=== PATIENT | male | born 1965 | race Caucasian/White ===

== ENCOUNTER 2023-07-04 18:06 | Inpatient (IN) | payer MEDICAID ==
[~2023-07-04] VITALS: Ht 172.7 cm; Wt 104.0 kg
[2023-07-04] MEDS: ONDANSETRON HCL 4 MG/2 ML VIAL IV ONE (19:00)
[2023-07-04] MEDS: InsuLIN REG 1unit/0.01ml Soln (100units/ml) SC ONE (19:15)
[2023-07-04 20:02] LABS: Alanine Aminotransferase 155 U/L (7-40); Albumin 3.7 g/dL (3.2-4.8); Alkaline Phosphatase 183 U/L (46-116); Anion Gap 29.00001 (5-15); Aspartate Aminotransferase 238 U/L (13-40); BUN/Creatinine Ratio 14.6 (10.0-20.0); Blood Urea Nitrogen 43 mg/dL (9-23); Chloride 90 mmol/L (98-107); Glucose 308 mg/dL (74-106); Magnesium 2.3 mg/dL (1.6-2.6); Potassium 3.4 mmol/L (3.5-5.1); Sodium 129 mmol/L (136-145)
[2023-07-04 20:03] LABS: Bilirubin, Total 1.8 mg/dL (0.2-1.0)
[2023-07-04 20:12] LABS: Salicylate < 3.0 mg/dL (2.8-20.0)
[2023-07-04 20:23] LABS: Basophils # (auto) 0.1 10 ^3/uL (0-0.2); Eosinophils # (auto) 0 10 ^3/uL (0-0.8); Hemoglobin 11.7 g/dL (13.5-17.5); Lymphocytes # (auto) 0.3 10 ^3/uL (0.4-5.4); Lymphocytes % (auto) 3.3 % (10.0-50.0); Nucleated Red Blood Cells % 0.2 %
[2023-07-04 20:27] LABS: Basophils % (auto) 1.3 % (0.0-2.0); Hematocrit 35.9 % (41.0-53.0); Mean Corpuscular Hemoglobin 35.2 pg (28.0-32.0); Mean Corpuscular Hgb Conc. 32.7 g/dL (32.0-36.0); Mean Corpuscular Volume 107.6 fL (80.0-100.0); Monocytes # (auto) 0.9 10 ^3/uL (0-1.3); Monocytes % (auto) 9.3 % (0.0-12.0); Neutrophils % (auto) 86.1 % (37.0-80.0); Red Blood Cells 3.34 10^6/uL (4.5-5.90); Red Cell Distribution Width 15.8 % (11.8-14.3); White Blood Cell 9.3 10^3/uL (4.4-10.8)
[2023-07-04 20:35] LABS: Carbon Dioxide < 10 mmol/L (20-30)
[2023-07-04 20:37] LABS: Blood Alcohol 3.7 mg/dL (<10)
[2023-07-04] MEDS ORDERED: DEXTROSE (50%) 50ML SYRG IV PRN ×2 (21:15→22:00)
[2023-07-04 21:54] LABS: Anisocytosis Slight; Macrocytosis Moderate; Platelet Estimate Decreased
[2023-07-04] MEDS: INSULIN DRIP 100 UNIT/100ML 100 ML IV SCH ×2 (22:00→23:53)
[2023-07-04] MEDS ORDERED: NITROGLYCERIN 0.4 MG SL TAB SL PRN (22:00)
[2023-07-04] MEDS ORDERED: MORPHINE SULFATE INJ 2 MG/ml SYRG IV PRN (22:00)
[2023-07-04] MEDS ORDERED: DOCUSATE SOD 100 MG CAP PO PRN (22:00)
[2023-07-04] MEDS: ACCU-CHEK COMFORT CURVE STRIP VI SCH (22:30)
[2023-07-04 23:12] LABS: Chloride 89 mmol/L (98-107); Potassium 3.6 mmol/L (3.5-5.1); Sodium 130 mmol/L (136-145)
[2023-07-04 23:13] LABS: Anion Gap 31.00001 (5-15)
[2023-07-04 23:14] LABS: Calcium 7.8 mg/dL (8.7-10.4)
[2023-07-04 23:18] LABS: BUN/Creatinine Ratio 18.4 (10.0-20.0); Glucose 304 mg/dL (74-106)
[2023-07-04 23:28] LABS: Blood Urea Nitrogen 59 mg/dL (9-23)
[2023-07-04 23:29] LABS: Carbon Dioxide < 10 mmol/L (20-30)
[2023-07-04] MEDS: SODIUM BICARB 8.4% 50Meq/50ml SYR Vial IV ONE (23:39)
[2023-07-05] VITALS: PULSE 85; RESP 18; O2SAT 96
[2023-07-05] MEDS: SODIUM CHLORIDE 0.9% 1,000 ML IV ONE (00:01)
[2023-07-05] MEDS: SODIUM CHLORIDE 0.9% 1,000 ML IVB ONE (00:01)
[2023-07-05] MEDS: D5W/SOD CHL 0.45%/KCL 20MEQ 1,000 ML IV SCH (00:25)
[2023-07-05] MEDS: PHENYLEPHRINE IV 250 ML IV SCH (01:45)
[2023-07-05] MEDS: SODIUM CHLORIDE 0.9% 1,000 ML IV SCH ×2 (02:14→04:08)
[2023-07-05] MEDS: chlordiazePOXIDE HCL 25 MG CAP PO PRN (06:56)
[2023-07-05 07:02] LABS: Urine Bacteria FEW /hpf (None Seen); Urine Blood 3+ /uL (Negative); Urine Clarity Clear (Clear); Urine Color Yellow (Yellow); Urine Hyaline Cast FEW /lpf (0 - 2); Urine Protein, UAD 1+ (Negative); Urine Specific Gravity 1.013 (1.001-1.035); Urine WBC 8 /hpf (0 - 3); Urine pH 5.5 (5.0-8.0)
[2023-07-05 07:06] LABS: Basophils # (auto) 0 10 ^3/uL (0-0.2); Eosinophils # (auto) 0 10 ^3/uL (0-0.8); Hemoglobin 11.7 g/dL (13.5-17.5); Monocytes # (auto) 0.3 10 ^3/uL (0-1.3); Nucleated Red Blood Cells % 0.3 %; Red Blood Cells 3.37 10^6/uL (4.5-5.90)
[2023-07-05 07:07] LABS: Basophils % (auto) 0.4 % (0.0-2.0); Lymphocytes # (auto) 0.8 10 ^3/uL (0.4-5.4); Mean Corpuscular Hemoglobin 34.7 pg (28.0-32.0); Mean Corpuscular Hgb Conc. 34.3 g/dL (32.0-36.0); Mean Corpuscular Volume 101.2 fL (80.0-100.0); Monocytes % (auto) 4.1 % (0.0-12.0); Neutrophils # (auto) 5.9 10 ^3/uL (1.6-8.6); Neutrophils % (auto) 84.5 % (37.0-80.0); Red Cell Distribution Width 15.2 % (11.8-14.3)
[2023-07-05 07:09] LABS: Alanine Aminotransferase 140 U/L (7-40); Albumin 3.4 g/dL (3.2-4.8); Alkaline Phosphatase 156 U/L (46-116); Aspartate Aminotransferase 207 U/L (13-40); BUN/Creatinine Ratio 19.1 (10.0-20.0); Bilirubin, Total 1.5 mg/dL (0.2-1.0); Calcium 7.5 mg/dL (8.5-10.1); Chloride 99 mmol/L (98-107); Cholesterol 165 mg/dL (< 200); Glucose 80 mg/dL (74-106); HDL Cholesterol 86 mg/dL (40-59); LDL Cholesterol 36 mg/dL (< 100); Potassium 3.4 mmol/L (3.5-5.1); Sodium 136 mmol/L (136-145); Total Protein 5.2 g/dL (5.7-8.2); Triglycerides 75 mg/dL (< 150)
[2023-07-05 07:13] LABS: Blood Urea Nitrogen 48 mg/dL (9-23)
[2023-07-05 07:14] LABS: Carbon Dioxide < 10 mmol/L (20-30); INR 1.13 (0.9-1.15); Partial Thromboplastin Time 34.7 SEC (24.5-34.5); Prothrombin Time 11.8 sec (9.3-11.8)
[2023-07-05 07:18] LABS: Amphetamine Screen, Urine Neg (NEGATIVE); Barbiturate Scree,Urine Neg (NEGATIVE); Benzodiazephine Screen, Urine Neg (NEGATIVE); Cocaine Screen, Urine Neg (NEGATIVE); Opiate Scree,Urine Neg (NEGATIVE)
[2023-07-05 07:19] LABS: Cannabinoid Screen, Urine Neg (NEGATIVE); Phencyclidine Screen, Urine Neg (NEGATIVE)
[2023-07-05 07:21] LABS: Base Excess -13.6 mmol/L (-2.0-2.0)
[2023-07-05 08:00] VITALS: PULSE 119; RESP 25; O2SAT 100
[2023-07-05] MEDS: LORazepam 2MG/ML-1ML VIAL IV ONE (08:55)
[2023-07-05] MEDS: LORazepam 0.5 MG TAB PO SCH (09:00)
[2023-07-05] MEDS: LORazepam 2MG/ML-1ML VIAL ONE (09:00)
[2023-07-05] MEDS: PANTOPRAZOLE 40 MG/10 ML VIAL INJ IV SCH (10:28)
[2023-07-05] MEDS: ENOXAPARIN SOD 40 MG/0.4 ML SYRINGE SC SCH (10:28)
[2023-07-05 11:25] LABS: Chloride 100 mmol/L (98-107); Potassium 3.1 mmol/L (3.5-5.1); Sodium 136 mmol/L (136-145)
[2023-07-05 11:26] LABS: Anion Gap 24 (5-15); Calcium 7.5 mg/dL (8.5-10.1); Carbon Dioxide 12 mmol/L (20-30)
[2023-07-05 11:31] LABS: BUN/Creatinine Ratio 19.6 (10.0-20.0); Blood Urea Nitrogen 43 mg/dL (9-23); Glucose 165 mg/dL (74-106)
[2023-07-05] MEDS: LORazepam 2MG/ML-1ML VIAL IV SCH (12:44)
[2023-07-05] MEDS: FOLIC ACID 1 MG, MULTIPLE VITAMIN 10 ML, MAGNESIUM SULF SDV 50% 8 MEQ, THIAMINE INJ 100... INJ SCH (14:21)
[2023-07-05 17:04] LABS: Chloride 105 mmol/L (98-107); Potassium 2.9 mmol/L (3.5-5.1); Sodium 142 mmol/L (136-145)
[2023-07-05 17:05] LABS: Anion Gap 20 (5-15); Calcium 7.6 mg/dL (8.5-10.1); Carbon Dioxide 17 mmol/L (20-30)
[2023-07-05 17:10] LABS: BUN/Creatinine Ratio 22.1 (10.0-20.0); Blood Urea Nitrogen 42 mg/dL (9-23); Glucose 211 mg/dL (74-106)
[2023-07-05] MEDS: POTASSIUM CHL 20MEQ/100ML 100 ML IV SCH (19:19)
[2023-07-05 19:42] VITALS: PULSE 78; RESP 18; O2SAT 96
[2023-07-06 00:47] LABS: Chloride 110 mmol/L (98-107); Potassium 3.7 mmol/L (3.5-5.1); Sodium 143 mmol/L (136-145)
[2023-07-06 00:48] LABS: Anion Gap 11 (5-15); Calcium 7.4 mg/dL (8.7-10.4); Carbon Dioxide 22 mmol/L (20-30)
[2023-07-06 00:53] LABS: BUN/Creatinine Ratio 24.6 (10.0-20.0); Glucose 113 mg/dL (74-106)
[2023-07-06 00:58] LABS: Blood Urea Nitrogen 31 mg/dL (9-23)
[2023-07-06 07:08] LABS: Chloride 107 mmol/L (98-107); Potassium 3.8 mmol/L (3.5-5.1); Sodium 141 mmol/L (136-145)
[2023-07-06 07:09] LABS: Anion Gap 12 (5-15); Calcium 7.7 mg/dL (8.5-10.1); Carbon Dioxide 22 mmol/L (20-30)
[2023-07-06 07:14] LABS: BUN/Creatinine Ratio 18.6 (10.0-20.0); Blood Urea Nitrogen 22 mg/dL (9-23); Glucose 199 mg/dL (74-106)
[2023-07-06] MEDS: LORazepam MDV 2MG/ML 10 ML IV ONE (10:40)
[2023-07-06 11:40] VITALS: PULSE 78; RESP 16; O2SAT 99
[2023-07-06 13:20] LABS: Anion Gap 10 (5-15); Carbon Dioxide 25 mmol/L (20-30); Chloride 107 mmol/L (98-107); Potassium 3.9 mmol/L (3.5-5.1); Sodium 142 mmol/L (136-145)
[2023-07-06 13:22] LABS: Calcium 7.2 mg/dL (8.5-10.1)
[2023-07-06 13:26] LABS: BUN/Creatinine Ratio 23.5 (10.0-20.0); Blood Urea Nitrogen 23 mg/dL (9-23); Glucose 157 mg/dL (74-106)
[2023-07-06 13:45] LABS: Hepatitis B Surface Antigen Negative (Negative)
[2023-07-06 14:06] LABS: Hepatitis A Ab IgM Negative
[2023-07-06 14:07] LABS: Hepatitis B Core IgM Negative; Hepatitis C Antibody Negative (Negative)
[2023-07-06 19:30] VITALS: PULSE 137; RESP 26; O2SAT 98
[2023-07-06 19:42] LABS: Chloride 108 mmol/L (98-107); Potassium 3.7 mmol/L (3.5-5.1); Sodium 141 mmol/L (136-145)
[2023-07-06 19:43] LABS: Anion Gap 8 (5-15); Carbon Dioxide 25 mmol/L (20-30)
[2023-07-06 19:48] LABS: BUN/Creatinine Ratio 16.7 (10.0-20.0); Blood Urea Nitrogen 16 mg/dL (9-23); Glucose 177 mg/dL (74-106)
[2023-07-07 00:44] LABS: Chloride 107 mmol/L (98-107); Potassium 3.6 mmol/L (3.5-5.1); Sodium 140 mmol/L (136-145)
[2023-07-07 00:45] LABS: Anion Gap 7 (5-15); Carbon Dioxide 26 mmol/L (20-30)
[2023-07-07 00:46] LABS: Calcium 7.1 mg/dL (8.7-10.4)
[2023-07-07 00:51] LABS: BUN/Creatinine Ratio 14.9 (10.0-20.0); Blood Urea Nitrogen 14 mg/dL (9-23); Glucose 204 mg/dL (74-106)
[2023-07-07 05:55] LABS: Anion Gap 7 (5-15); Carbon Dioxide 27 mmol/L (20-30); Chloride 107 mmol/L (98-107); Potassium 3.6 mmol/L (3.5-5.1); Sodium 141 mmol/L (136-145)
[2023-07-07 05:57] LABS: Calcium 7.4 mg/dL (8.7-10.4)
[2023-07-07 06:01] LABS: Glucose 130 mg/dL (74-106)
[2023-07-07 06:02] LABS: BUN/Creatinine Ratio 13.3 (10.0-20.0); Blood Urea Nitrogen 11 mg/dL (9-23); Creatine Kinase IFCC 162 U/L (46-171)
[2023-07-07 07:30] VITALS: PULSE 95; RESP 14; O2SAT 97
[2023-07-07] MEDS ORDERED: DEXTROSE (50%) 50ML SYRG IV PRN (08:45)
[2023-07-07] MEDS: InsuLIN REG 1unit/0.01ml Soln (100units/ml) SC SCH ×2 (11:41→22:00)
[2023-07-07] MEDS: ACCU-CHEK COMFORT CURVE STRIP VI SCH (11:42)
[2023-07-07 12:09] LABS: Chloride 106 mmol/L (98-107); Sodium 139 mmol/L (136-145)
[2023-07-07 12:10] LABS: Anion Gap 9 (5-15); Carbon Dioxide 24 mmol/L (20-30)
[2023-07-07 12:11] LABS: Calcium 7.4 mg/dL (8.7-10.4)
[2023-07-07 12:15] LABS: BUN/Creatinine Ratio 12.7 (10.0-20.0); Blood Urea Nitrogen 10 mg/dL (9-23); Glucose 227 mg/dL (74-106)
[2023-07-07 14:41] LABS: Prothrombin Time 10.5 sec (9.3-11.8)
[2023-07-07 18:25] LABS: Chloride 104 mmol/L (98-107); Potassium 3.8 mmol/L (3.5-5.1); Sodium 137 mmol/L (136-145)
[2023-07-07 18:26] LABS: Anion Gap 8 (5-15); Carbon Dioxide 25 mmol/L (20-30)
[2023-07-07 18:27] LABS: Calcium 7.8 mg/dL (8.5-10.1)
[2023-07-07 18:32] LABS: BUN/Creatinine Ratio 12.8 (10.0-20.0); Blood Urea Nitrogen 10 mg/dL (9-23); Glucose 242 mg/dL (74-106)
[2023-07-07 19:30] VITALS: PULSE 78; RESP 16; O2SAT 100
[2023-07-08 05:08] LABS: Alanine Aminotransferase 79 U/L (7-40); Albumin 3.1 g/dL (3.2-4.8); Alkaline Phosphatase 157 U/L (46-116); Anion Gap 9 (5-15); Aspartate Aminotransferase 105 U/L (13-40); BUN/Creatinine Ratio 13.9 (10.0-20.0); Bilirubin, Total 1.1 mg/dL (0.2-1.0); Blood Urea Nitrogen 11 mg/dL (9-23); Calcium 7.7 mg/dL (8.7-10.4); Carbon Dioxide 23 mmol/L (20-30); Chloride 103 mmol/L (98-107); Glucose 266 mg/dL (74-106); Lipase 55 U/L (12-53); Potassium 3.8 mmol/L (3.5-5.1); Sodium 135 mmol/L (136-145); Total Protein 5.3 g/dL (5.7-8.2)
[2023-07-08] MEDS: D5W/SOD CHL 0.45%/KCL 20MEQ 1,000 ML IV SCH ×2 (08:32→09:54)
[2023-07-08 10:21] VITALS: O2SAT 100
[2023-07-08 19:30] VITALS: PULSE 77; RESP 10; O2SAT 100
[2023-07-09 07:53] VITALS: PULSE 76; RESP 14; O2SAT 96
[2023-07-09] MEDS ORDERED: DEXTROSE (50%) 50ML SYRG IV PRN (08:15)
[2023-07-09] MEDS: SODIUM CHLORIDE 0.9% 1,000 ML IV SCH (09:06)
[2023-07-09] MEDS: ACCU-CHEK COMFORT CURVE STRIP VI SCH (13:01)
[2023-07-09] MEDS: InsuLIN REG 1unit/0.01ml Soln (100units/ml) SC SCH (13:04)
[2023-07-09 15:27] VITALS: PULSE 82; RESP 16; O2SAT 95
[2023-07-09 15:28] VITALS: BP 113/80; PULSE 80; RESP 20; O2SAT 99
[2023-07-09 20:00] VITALS: BP 114/74; PULSE 94; RESP 18; TEMP 97.7; O2SAT 94
[2023-07-09 22:00] VITALS: BP 114/74; PULSE 94; RESP 18; TEMP 97.7; O2SAT 94
[2023-07-10] VITALS (7 sets, daily range): BP systolic 101–128; BP diastolic 55–78; PULSE 56–94; RESP 16–22; TEMP 97.5–98.4; O2SAT 94–100
[2023-07-11] VITALS (7 sets, daily range): BP systolic 107–132; BP diastolic 57–86; PULSE 65–95; RESP 17–20; TEMP 97.5–98.2; O2SAT 96–100
[2023-07-11] MEDS: metFORMIN HYDROCHLORIDE 500 MG TAB PO SCH (17:27)
[2023-07-11] MEDS: ONDANSETRON HCL 4 MG/2 ML VIAL IV PRN (20:11)
[2023-07-12 05:00] VITALS: BP 110/60; PULSE 72; RESP 18; TEMP 98.1; O2SAT 97
[2023-07-12 06:22] LABS: Eosinophils # (auto) 0.1 10 ^3/uL (0-0.8); Hemoglobin 9.7 g/dL (13.5-17.5); Monocytes # (auto) 1.3 10 ^3/uL (0-1.3)
[2023-07-12 06:24] LABS: Basophils # (auto) 0 10 ^3/uL (0-0.2); Basophils % (auto) 0.4 % (0.0-2.0); Eosinophils % (auto) 0.7 % (0.0-7.0); Hematocrit 28.5 % (41.0-53.0); Lymphocytes % (auto) 12.1 % (10.0-50.0); Mean Corpuscular Hemoglobin 35.2 pg (28.0-32.0); Mean Corpuscular Hgb Conc. 34.1 g/dL (32.0-36.0); Mean Corpuscular Volume 103.3 fL (80.0-100.0); Monocytes % (auto) 15.6 % (0.0-12.0); Neutrophils # (auto) 5.9 10 ^3/uL (1.6-8.6); Neutrophils % (auto) 71.2 % (37.0-80.0); Nucleated Red Blood Cells % 0.1 %; Red Blood Cells 2.76 10^6/uL (4.5-5.90); Red Cell Distribution Width 15.5 % (11.8-14.3); White Blood Cell 8.3 10^3/uL (4.4-10.8)
[2023-07-12 06:29] LABS: INR 0.93 (0.9-1.15); Prothrombin Time 9.8 sec (9.3-11.8)
[2023-07-12 06:32] LABS: Alanine Aminotransferase 57 U/L (7-40); Albumin 3.2 g/dL (3.2-4.8); Alkaline Phosphatase 143 U/L (46-116); Anion Gap 7 (5-15); Aspartate Aminotransferase 29 U/L (13-40); BUN/Creatinine Ratio 12.1 (10.0-20.0); Bilirubin, Total 0.9 mg/dL (0.2-1.0); Blood Urea Nitrogen 14 mg/dL (9-23); Calcium 9.2 mg/dL (8.5-10.1); Carbon Dioxide 24 mmol/L (20-30); Chloride 105 mmol/L (98-107); Glucose 231 mg/dL (74-106); Potassium 4.2 mmol/L (3.5-5.1); Sodium 136 mmol/L (136-145); Total Protein 5.3 g/dL (5.7-8.2)
[2023-07-12 08:00] VITALS: PULSE 82; RESP 20; O2SAT 95
[2023-07-12 09:35] VITALS: BP 105/58; PULSE 86; RESP 17; TEMP 98.4; O2SAT 95
[2023-07-12] MEDS ORDERED: PANT40T PO (10:11)
[2023-07-12] MEDS ORDERED: THIA100T13 PO (10:11)
[2023-07-12] MEDS ORDERED: FOLI-119 PO (10:11)
[2023-07-12] MEDS ORDERED: METF-372 PO (10:11)
[2023-07-12] MEDS ORDERED: CHL25C GT (10:12)
[2023-07-12] MEDS ORDERED: CHLO25CA56 PO (10:13)
[2023-07-12 12:49] VITALS: BP 104/71; PULSE 79; RESP 16; TEMP 97.8; O2SAT 99
== END 2023-07-12 13:37 | disposition home or self-care (01) | DRG 420 ==
LOC: EDBD 18:06 → ER 18:06 → TELE 22:14 → TELE-WESTW 07-09 15:29 → WEST WING 07-09 23:55
PROVIDERS: ADMIT Nurse Practitioner Family; ATTEND Family Medicine
DX: E11.10 Type 2 diabetes mellitus with ketoacidosis without coma (principal); N17.0 Acute kidney failure with tubular necrosis; G93.41 Metabolic encephalopathy; M62.82 Rhabdomyolysis; E87.1 Hypo-osmolality and hyponatremia; E11.65 Type 2 diabetes mellitus with hyperglycemia; D75.89 Other specified diseases of blood and blood-forming organs; E86.0 Dehydration; R74.01 Elevation of levels of liver transaminase levels; X58.XXXA Exposure to other specified factors, initial encounter; Z91.148 Patient's other noncompliance with medication regimen for other reason; F10.10 Alcohol abuse, uncomplicated; I10 Essential (primary) hypertension; Z59.02 Unsheltered homelessness; Z79.4 Long term (current) use of insulin; Z79.84 Long term (current) use of oral hypoglycemic drugs; Z90.49 Acquired absence of other specified parts of digestive tract
CPT/HCPCS: 36415; 36600; 70450; 71045; 76705; 80048; 80053; 80061; 80074; 80307; 80320; 80329; 81001; 82010; 82140; 82550; 82805; 82962; 83036; 83690; 83735; 83930; 84100; 85025; 85610; 85730; 93306; C9113; G0378; J1815; J2405; J3480

== ENCOUNTER 2023-07-13 18:14 | Inpatient (IN) | payer MEDICAID ==
[~2023-07-13] VITALS: Ht 172.7 cm; Wt 86.9 kg
[~2023-07-13 18:14] MED LIST: CHL25C GT; CHLO25CA56 PO; FOLI-119 PO; METF-372 PO; PANT40T PO; THIA100T13 PO
[2023-07-13 20:29] LABS: Basophils # (auto) 0 10 ^3/uL (0-0.2); Basophils % (auto) 0.2 % (0.0-2.0); Eosinophils # (auto) 0 10 ^3/uL (0-0.8); Hematocrit 26.6 % (41.0-53.0); Hemoglobin 8.9 g/dL (13.5-17.5); Lymphocytes # (auto) 0.5 10 ^3/uL (0.4-5.4); Lymphocytes % (auto) 3.3 % (10.0-50.0); Mean Corpuscular Hemoglobin 35.1 pg (28.0-32.0); Mean Corpuscular Hgb Conc. 33.6 g/dL (32.0-36.0); Mean Corpuscular Volume 104.5 fL (80.0-100.0); Monocytes # (auto) 0.9 10 ^3/uL (0-1.3); Monocytes % (auto) 5.9 % (0.0-12.0); Neutrophils # (auto) 14.5 10 ^3/uL (1.6-8.6); Neutrophils % (auto) 90.6 % (37.0-80.0); Nucleated Red Blood Cells % 0.1 %; Red Blood Cells 2.54 10^6/uL (4.5-5.90); Red Cell Distribution Width 15.6 % (11.8-14.3); White Blood Cell 16.1 10^3/uL (4.4-10.8)
[2023-07-13 20:36] LABS: Chloride 105 mmol/L (98-107); Potassium 4.5 mmol/L (3.5-5.1); Sodium 136 mmol/L (136-145)
[2023-07-13 20:37] LABS: Anion Gap 12 (5-15); Calcium 8.3 mg/dL (8.5-10.1); Carbon Dioxide 19 mmol/L (20-30)
[2023-07-13 20:42] LABS: BUN/Creatinine Ratio 22.2 (10.0-20.0); Blood Urea Nitrogen 22 mg/dL (9-23)
[2023-07-13 20:58] LABS: Glucose 404 mg/dL (74-106)
[2023-07-14] MEDS ORDERED: DEXTROSE (50%) 50ML SYRG IV PRN (02:30)
[2023-07-14] MEDS ORDERED: ONDANSETRON HCL 4 MG/2 ML VIAL IV PRN (02:30)
[2023-07-14] MEDS ORDERED: DOCUSATE SOD 100 MG CAP PO PRN (02:30)
[2023-07-14] MEDS ORDERED: ACETAMINOPHEN 325 MG TAB PO PRN (02:30)
[2023-07-14 03:47] LABS: Basophils # (auto) 0.1 10 ^3/uL (0-0.2); Basophils % (auto) 0.4 % (0.0-2.0); Eosinophils # (auto) 0 10 ^3/uL (0-0.8); Eosinophils % (auto) 0.2 % (0.0-7.0); Hematocrit 25.6 % (41.0-53.0); Hemoglobin 8.4 g/dL (13.5-17.5); Lymphocytes # (auto) 0.6 10 ^3/uL (0.4-5.4); Mean Corpuscular Hemoglobin 34.6 pg (28.0-32.0); Mean Corpuscular Hgb Conc. 32.9 g/dL (32.0-36.0); Mean Corpuscular Volume 105.1 fL (80.0-100.0); Monocytes # (auto) 0.7 10 ^3/uL (0-1.3); Monocytes % (auto) 5.1 % (0.0-12.0); Neutrophils # (auto) 12.8 10 ^3/uL (1.6-8.6); Neutrophils % (auto) 90.3 % (37.0-80.0); Red Blood Cells 2.44 10^6/uL (4.5-5.90); Red Cell Distribution Width 15.7 % (11.8-14.3); White Blood Cell 14.1 10^3/uL (4.4-10.8)
[2023-07-14 03:53] LABS: Alanine Aminotransferase 45 U/L (7-40); Albumin 2.9 g/dL (3.2-4.8); Alkaline Phosphatase 167 U/L (46-116); Anion Gap 9 (5-15); Aspartate Aminotransferase 18 U/L (13-40); BUN/Creatinine Ratio 13.2 (10.0-20.0); Blood Urea Nitrogen 14 mg/dL (9-23); Carbon Dioxide 19 mmol/L (20-30); Chloride 105 mmol/L (98-107); Potassium 3.3 mmol/L (3.5-5.1); Sodium 133 mmol/L (136-145)
[2023-07-14 03:54] LABS: Bilirubin, Total 0.8 mg/dL (0.2-1.0); Total Protein 5.2 g/dL (5.7-8.2)
[2023-07-14 03:55] LABS: Glucose 303 mg/dL (74-106)
[2023-07-14] MEDS: IOHEXOL 350 MG/ML 100ML IJ ONE (04:44)
[2023-07-14 05:00] VITALS: PULSE 89; RESP 16; O2SAT 99
[2023-07-14] MEDS: INSULIN LISPRO (HUMAN) 100 UNITS/ML ML SC ONE (05:03)
[2023-07-14] MEDS: ACCU-CHEK COMFORT CURVE STRIP VI SCH (05:03)
[2023-07-14] MEDS: SODIUM CHLORIDE 0.9% 1,000 ML IV ONE ×3 (05:03→10:24)
[2023-07-14] MEDS: InsuLIN REG 1unit/0.01ml Soln (100units/ml) SC SCH (05:08)
[2023-07-14] MEDS: CALCIUM GLUC 1,000mg/50ml-NS 50 ML IV SCH ×2 (05:24)
[2023-07-14] MEDS: SODIUM CHLORIDE 0.9% 1,000 ML IV SCH (06:24)
[2023-07-14] MEDS ORDERED: MORPHINE SULFATE INJ 2 MG/ml SYRG IV PRN (07:00)
[2023-07-14] MEDS: AZITHROMYCIN 500MG/ 250ML 250 ML IV ONE (07:00)
[2023-07-14] MEDS ORDERED: NITROGLYCERIN 0.4 MG SL TAB SL PRN (07:00)
[2023-07-14 07:40] VITALS: PULSE 80; RESP 16; O2SAT 95
[2023-07-14] MEDS: cefTRIAXone 1GM/50ML D5W 50 ML IV SCH (09:18)
[2023-07-14] MEDS: ENOXAPARIN SOD 40 MG/0.4 ML SYRINGE SC SCH (10:24)
[2023-07-14 10:37] LABS: Urine Bacteria NONE SEEN /hpf (None Seen); Urine Blood TRACE /uL (Negative); Urine Clarity Clear (Clear); Urine Color Colorless (Yellow); Urine Protein, UAD Negative (Negative); Urine Specific Gravity 1.022 (1.001-1.035); Urine Urobilinogen Normal (Negative); Urine WBC 1 /hpf (0 - 3); Urine pH 5.5 (5.0-8.0)
[2023-07-14] MEDS: NOREPINEPHRINE 8 MG/250ML KIT 250 ML IV SCH (12:58)
[2023-07-14 19:30] VITALS: PULSE 98; RESP 10; O2SAT 100
[2023-07-15] MEDS: HYDROcodone-ACET 5/325MG TAB PO PRN (01:55)
[2023-07-15] MEDS: AZITHROMYCIN 500MG/ 250ML 250 ML IV SCH (04:31)
[2023-07-15 05:37] LABS: Basophils # (auto) 0.1 10 ^3/uL (0-0.2); Eosinophils % (auto) 0.5 % (0.0-7.0); Lymphocytes # (auto) 1.2 10 ^3/uL (0.4-5.4); Mean Corpuscular Hemoglobin 35.3 pg (28.0-32.0); Mean Corpuscular Hgb Conc. 34.4 g/dL (32.0-36.0); Monocytes # (auto) 0.7 10 ^3/uL (0-1.3)
[2023-07-15 05:39] LABS: Basophils % (auto) 0.8 % (0.0-2.0); Eosinophils # (auto) 0 10 ^3/uL (0-0.8); Hematocrit 24.8 % (41.0-53.0); Hemoglobin 8.5 g/dL (13.5-17.5); Lymphocytes % (auto) 12.1 % (10.0-50.0); Mean Corpuscular Volume 102.7 fL (80.0-100.0); Monocytes % (auto) 7.2 % (0.0-12.0); Neutrophils # (auto) 7.8 10 ^3/uL (1.6-8.6); Neutrophils % (auto) 79.4 % (37.0-80.0); Red Blood Cells 2.42 10^6/uL (4.5-5.90); Red Cell Distribution Width 15.5 % (11.8-14.3); White Blood Cell 9.9 10^3/uL (4.4-10.8)
[2023-07-15 06:05] LABS: Alanine Aminotransferase 43 U/L (7-40); Albumin 2.8 g/dL (3.2-4.8); Alkaline Phosphatase 137 U/L (46-116); Anion Gap 8 (5-15); Aspartate Aminotransferase 23 U/L (13-40); BUN/Creatinine Ratio 11.8 (10.0-20.0); Bilirubin, Total 0.5 mg/dL (0.2-1.0); Blood Urea Nitrogen 12 mg/dL (9-23); Calcium 8.3 mg/dL (8.7-10.4); Carbon Dioxide 22 mmol/L (20-30); Chloride 110 mmol/L (98-107); Glucose 215 mg/dL (74-106); Potassium 3.7 mmol/L (3.5-5.1); Sodium 140 mmol/L (136-145); Total Protein 4.9 g/dL (5.7-8.2)
[2023-07-15 08:00] VITALS: O2SAT 95
[2023-07-15 08:45] VITALS: BP 107/67; PULSE 71; RESP 16; TEMP 98.2; O2SAT 98
[2023-07-15] MEDS: PIPERACILLIN-TAZOB 3.375GM 100 ML IV SCH (09:23)
[2023-07-15 13:00] VITALS: BP 105/64; PULSE 88; RESP 16; TEMP 98.2; O2SAT 98
[2023-07-15] MEDS ORDERED: VANCOMYCIN PER PHARMACY 0 MG IV SCH (15:15)
[2023-07-15 17:00] VITALS: BP 137/76; PULSE 86; RESP 18; TEMP 98.2; O2SAT 97
[2023-07-15] MEDS: VANCOMYCIN 1GM/200ML 200 ML IV ONE (17:03)
[2023-07-15 20:00] VITALS: O2SAT 95
[2023-07-15 22:00] VITALS: BP 115/78; PULSE 68; RESP 18; TEMP 98.9; O2SAT 100
[2023-07-16] MEDS: VANCOMYCIN 1GM/200ML 200 ML IV SCH (04:58)
[2023-07-16 05:00] VITALS: BP 113/81; PULSE 74; RESP 20; TEMP 97.9; O2SAT 100
[2023-07-16] MEDS: INSULIN LANTUS (GLARGINE) 1 /0.01ml (100units/ml) SC SCH (06:08)
[2023-07-16 08:00] VITALS: O2SAT 96
[2023-07-16 09:00] VITALS: BP 100/60; PULSE 67; RESP 16; TEMP 98.1; O2SAT 99
[2023-07-16 09:13] LABS: Basophils # (auto) 0.1 10 ^3/uL (0-0.2); Eosinophils # (auto) 0 10 ^3/uL (0-0.8); Hemoglobin 8.2 g/dL (13.5-17.5); Lymphocytes # (auto) 1.2 10 ^3/uL (0.4-5.4); Mean Corpuscular Hemoglobin 34.4 pg (28.0-32.0); Mean Corpuscular Volume 102.8 fL (80.0-100.0); Monocytes # (auto) 0.8 10 ^3/uL (0-1.3)
[2023-07-16 09:15] LABS: Basophils % (auto) 1.6 % (0.0-2.0); Eosinophils % (auto) 0.4 % (0.0-7.0); Hematocrit 24.7 % (41.0-53.0); Lymphocytes % (auto) 14.1 % (10.0-50.0); Mean Corpuscular Hgb Conc. 33.4 g/dL (32.0-36.0); Monocytes % (auto) 9.1 % (0.0-12.0); Neutrophils # (auto) 6.6 10 ^3/uL (1.6-8.6); Neutrophils % (auto) 74.8 % (37.0-80.0); Red Cell Distribution Width 15.6 % (11.8-14.3); White Blood Cell 8.8 10^3/uL (4.4-10.8)
[2023-07-16 09:29] LABS: Alanine Aminotransferase 32 U/L (7-40); Alkaline Phosphatase 131 U/L (46-116); Anion Gap 8 (5-15); BUN/Creatinine Ratio 11.1 (10.0-20.0); Blood Urea Nitrogen 13 mg/dL (9-23); Calcium 8.2 mg/dL (8.5-10.1); Carbon Dioxide 21 mmol/L (20-30); Chloride 109 mmol/L (98-107); Glucose 196 mg/dL (74-106); Potassium 3.9 mmol/L (3.5-5.1); Sodium 138 mmol/L (136-145)
[2023-07-16 09:30] LABS: Albumin 2.7 g/dL (3.2-4.8); Aspartate Aminotransferase 20 U/L (13-40); Bilirubin, Total 0.5 mg/dL (0.2-1.0)
[2023-07-16 13:00] VITALS: BP 120/87; PULSE 69; RESP 17; TEMP 98.1; O2SAT 100
[2023-07-16 17:00] VITALS: BP 123/78; PULSE 69; RESP 17; TEMP 98.1; O2SAT 100
[2023-07-16 17:07] LABS: Triglycerides 43 mg/dL (< 150)
[2023-07-16 17:08] LABS: LDL Cholesterol 26 mg/dL (< 100)
[2023-07-16 17:09] LABS: Cholesterol 74 mg/dL (< 200); HDL Cholesterol 38 mg/dL (40-59)
[2023-07-16] MEDS: LORazepam 0.5 MG TAB PO ONE (17:28)
[2023-07-16 22:00] VITALS: BP_SYST 106; BP_SYST 109; BP_DIAS 65; BP_DIAS 70; PULSE 69; PULSE 73; RESP 16; RESP 18; TEMP 98; TEMP 98.2; O2SAT 97; O2SAT 99
[2023-07-17 05:00] VITALS: BP 115/74; PULSE 82; RESP 20; TEMP 98.6; O2SAT 99
[2023-07-17 05:56] LABS: Basophils # (auto) 0.1 10 ^3/uL (0-0.2); Eosinophils # (auto) 0.1 10 ^3/uL (0-0.8); Hemoglobin 8.4 g/dL (13.5-17.5); Monocytes # (auto) 0.7 10 ^3/uL (0-1.3)
[2023-07-17 05:58] LABS: Basophils % (auto) 1.5 % (0.0-2.0); Eosinophils % (auto) 0.8 % (0.0-7.0); Hematocrit 24.4 % (41.0-53.0); Lymphocytes # (auto) 1.4 10 ^3/uL (0.4-5.4); Lymphocytes % (auto) 16.4 % (10.0-50.0); Mean Corpuscular Hemoglobin 34.6 pg (28.0-32.0); Mean Corpuscular Hgb Conc. 34.2 g/dL (32.0-36.0); Mean Corpuscular Volume 101.1 fL (80.0-100.0); Monocytes % (auto) 7.7 % (0.0-12.0); Neutrophils # (auto) 6.2 10 ^3/uL (1.6-8.6); Neutrophils % (auto) 73.6 % (37.0-80.0); Red Blood Cells 2.42 10^6/uL (4.5-5.90); Red Cell Distribution Width 15.1 % (11.8-14.3); White Blood Cell 8.5 10^3/uL (4.4-10.8)
[2023-07-17 06:11] LABS: Alanine Aminotransferase 32 U/L (7-40); Albumin 2.5 g/dL (3.2-4.8); Alkaline Phosphatase 120 U/L (46-116); Anion Gap 4 (5-15); Aspartate Aminotransferase 17 U/L (13-40); BUN/Creatinine Ratio 11.8 (10.0-20.0); Bilirubin, Total 0.4 mg/dL (0.2-1.0); Blood Urea Nitrogen 13 mg/dL (9-23); Calcium 8.3 mg/dL (8.5-10.1); Carbon Dioxide 25 mmol/L (20-30); Chloride 110 mmol/L (98-107); Glucose 144 mg/dL (74-106); Potassium 4.4 mmol/L (3.5-5.1); Sodium 139 mmol/L (136-145); Total Protein 4.6 g/dL (5.7-8.2)
[2023-07-17 08:00] VITALS: BP 125/75; PULSE 68; RESP 18; TEMP 98.1; O2SAT 100
[2023-07-17] MEDS: LORazepam 0.5 MG TAB PO PRN (12:04)
[2023-07-17 17:00] VITALS: BP 124/77; PULSE 78; RESP 20; TEMP 98.1; O2SAT 99
[2023-07-17 22:00] VITALS: BP 119/59; PULSE 73; RESP 19; TEMP 98.4; O2SAT 98
[2023-07-17] MEDS: DAKINS HALF STR 0.25% (NaHypochlorite) 473 ML TOPICAL SOL TOP SCH (23:59)
[2023-07-18 05:00] VITALS: BP 116/80; PULSE 77; RESP 18; TEMP 98.7; O2SAT 100
[2023-07-18 07:07] LABS: Basophils # (auto) 0.1 10 ^3/uL (0-0.2); Basophils % (auto) 1.2 % (0.0-2.0); Eosinophils # (auto) 0.1 10 ^3/uL (0-0.8); Eosinophils % (auto) 1.3 % (0.0-7.0); Hematocrit 24.3 % (41.0-53.0); Hemoglobin 8.1 g/dL (13.5-17.5); Lymphocytes # (auto) 1.4 10 ^3/uL (0.4-5.4); Lymphocytes % (auto) 21.6 % (10.0-50.0); Mean Corpuscular Hemoglobin 33.8 pg (28.0-32.0); Mean Corpuscular Hgb Conc. 33.2 g/dL (32.0-36.0); Monocytes # (auto) 0.6 10 ^3/uL (0-1.3); Monocytes % (auto) 8.7 % (0.0-12.0); Neutrophils # (auto) 4.4 10 ^3/uL (1.6-8.6); Neutrophils % (auto) 67.2 % (37.0-80.0); Nucleated Red Blood Cells % 0.1 %; Red Blood Cells 2.39 10^6/uL (4.5-5.90); Red Cell Distribution Width 15.4 % (11.8-14.3); White Blood Cell 6.6 10^3/uL (4.4-10.8)
[2023-07-18 07:19] LABS: Alanine Aminotransferase 25 U/L (7-40); Alkaline Phosphatase 104 U/L (46-116); Anion Gap 5 (5-15); Blood Urea Nitrogen 8 mg/dL (9-23); Calcium 8.5 mg/dL (8.5-10.1); Carbon Dioxide 25 mmol/L (20-30); Chloride 112 mmol/L (98-107); Glucose 163 mg/dL (74-106); Potassium 4.2 mmol/L (3.5-5.1); Sodium 142 mmol/L (136-145)
[2023-07-18 07:20] LABS: Albumin 2.7 g/dL (3.2-4.8); Aspartate Aminotransferase 17 U/L (13-40); Bilirubin, Total 0.4 mg/dL (0.2-1.0)
[2023-07-18 09:00] VITALS: BP 129/58; PULSE 75; RESP 18; TEMP 98.2; O2SAT 99
[2023-07-18 13:00] VITALS: BP 110/80; PULSE 93; RESP 19; TEMP 98.1; O2SAT 99
[2023-07-18] MEDS: cefTRIAXone 2GM/50ML D5W 50 ML IV ONE (15:10)
[2023-07-18 17:00] VITALS: BP 129/83; PULSE 67; RESP 16; TEMP 97.7; O2SAT 99
[2023-07-18 22:00] VITALS: BP 127/77; PULSE 95; RESP 19; TEMP 97.9; O2SAT 99
[2023-07-19 05:00] VITALS: BP 130/79; PULSE 82; RESP 18; TEMP 98; O2SAT 97
[2023-07-19 06:24] LABS: Basophils # (auto) 0.1 10 ^3/uL (0-0.2); Eosinophils # (auto) 0.1 10 ^3/uL (0-0.8); Hemoglobin 7.8 g/dL (13.5-17.5); Monocytes # (auto) 0.6 10 ^3/uL (0-1.3); Nucleated Red Blood Cells % 0.1 %
[2023-07-19 06:29] LABS: Basophils % (auto) 1.3 % (0.0-2.0); Eosinophils % (auto) 1.2 % (0.0-7.0); Hematocrit 22.9 % (41.0-53.0); Lymphocytes # (auto) 1.3 10 ^3/uL (0.4-5.4); Lymphocytes % (auto) 24.7 % (10.0-50.0); Mean Corpuscular Hemoglobin 35.3 pg (28.0-32.0); Mean Corpuscular Hgb Conc. 33.9 g/dL (32.0-36.0); Neutrophils # (auto) 3.3 10 ^3/uL (1.6-8.6); Neutrophils % (auto) 61.8 % (37.0-80.0); Red Cell Distribution Width 15.6 % (11.8-14.3); White Blood Cell 5.4 10^3/uL (4.4-10.8)
[2023-07-19 06:36] LABS: Alanine Aminotransferase 23 U/L (7-40); Albumin 2.6 g/dL (3.2-4.8); Alkaline Phosphatase 99 U/L (46-116); Anion Gap 5 (5-15); Aspartate Aminotransferase 18 U/L (13-40); BUN/Creatinine Ratio 5.3 (10.0-20.0); Blood Urea Nitrogen 6 mg/dL (9-23); Calcium 8.4 mg/dL (8.5-10.1); Carbon Dioxide 25 mmol/L (20-30); Chloride 110 mmol/L (98-107); Glucose 169 mg/dL (74-106); Potassium 4.1 mmol/L (3.5-5.1); Sodium 140 mmol/L (136-145)
[2023-07-19 06:37] LABS: Bilirubin, Total 0.3 mg/dL (0.2-1.0); Total Protein 4.9 g/dL (5.7-8.2)
[2023-07-19 09:00] VITALS: BP 138/84; PULSE 69; RESP 18; TEMP 98.2; O2SAT 98
[2023-07-19] MEDS ORDERED: cefTRIAXone 1GM/50ML D5W 50 ML IV SCH (09:00)
[2023-07-19] MEDS: cefTRIAXone 2GM/50ML D5W 50 ML IV SCH (09:03)
[2023-07-19] MEDS ORDERED: VANCOMYCIN PER PHARMACY 0 MG IV SCH (13:00)
[2023-07-19] MEDS: GABAPENTIN 300 MG CAP PO SCH (14:13)
[2023-07-19] MEDS: VANCOMYCIN 1GM/200ML 200 ML IV SCH (16:37)
[2023-07-19 17:00] VITALS: BP 156/90; PULSE 69; RESP 19; TEMP 98.1; O2SAT 100
[2023-07-19 20:00] VITALS: PULSE 76; RESP 19; O2SAT 99
[2023-07-19 22:00] VITALS: BP 104/67; PULSE 76; RESP 19; TEMP 98; O2SAT 99
[2023-07-20 05:00] VITALS: BP 99/59; PULSE 79; RESP 18; TEMP 98.1; O2SAT 100
[2023-07-20 06:32] LABS: Basophils # (auto) 0.1 10 ^3/uL (0-0.2); Eosinophils # (auto) 0.1 10 ^3/uL (0-0.8); Eosinophils % (auto) 2.2 % (0.0-7.0); Hemoglobin 7.8 g/dL (13.5-17.5); Lymphocytes # (auto) 1.3 10 ^3/uL (0.4-5.4); Monocytes # (auto) 0.6 10 ^3/uL (0-1.3); Monocytes % (auto) 11.3 % (0.0-12.0); Neutrophils # (auto) 3.2 10 ^3/uL (1.6-8.6); White Blood Cell 5.3 10^3/uL (4.4-10.8)
[2023-07-20 06:35] LABS: Basophils % (auto) 1.2 % (0.0-2.0); Hematocrit 23.2 % (41.0-53.0); Lymphocytes % (auto) 24.6 % (10.0-50.0); Mean Corpuscular Hemoglobin 34.8 pg (28.0-32.0); Mean Corpuscular Hgb Conc. 33.8 g/dL (32.0-36.0); Mean Corpuscular Volume 103.1 fL (80.0-100.0); Neutrophils % (auto) 60.7 % (37.0-80.0); Nucleated Red Blood Cells % 0.1 %; Red Blood Cells 2.25 10^6/uL (4.5-5.90); Red Cell Distribution Width 15.7 % (11.8-14.3)
[2023-07-20 06:49] LABS: Alanine Aminotransferase 23 U/L (7-40); Alkaline Phosphatase 98 U/L (46-116); Anion Gap 5 (5-15); Aspartate Aminotransferase 18 U/L (13-40); BUN/Creatinine Ratio 8.3 (10.0-20.0); Blood Urea Nitrogen 8 mg/dL (9-23); Calcium 8.5 mg/dL (8.5-10.1); Carbon Dioxide 27 mmol/L (20-30); Chloride 108 mmol/L (98-107); Glucose 140 mg/dL (74-106); Potassium 4.1 mmol/L (3.5-5.1); Sodium 140 mmol/L (136-145)
[2023-07-20 06:50] LABS: Albumin 2.7 g/dL (3.2-4.8); Bilirubin, Total 0.2 mg/dL (0.2-1.0)
[2023-07-20 07:46] VITALS: BP 145/93; PULSE 80; RESP 18; TEMP 98.2; O2SAT 100
[2023-07-20 11:41] VITALS: BP 119/72; PULSE 81; RESP 18; TEMP 98.1; O2SAT 99
[2023-07-20 20:00] VITALS: PULSE 72; RESP 18; O2SAT 98
[2023-07-20 21:56] VITALS: BP 138/82; PULSE 72; RESP 18; TEMP 98.6; O2SAT 98
[2023-07-21] VITALS (7 sets, daily range): BP systolic 106–142; BP diastolic 72–83; PULSE 59–102; RESP 16–20; TEMP 97.7–98.6; O2SAT 97–100
[2023-07-21 03:59] LABS: Basophils # (auto) 0.1 10 ^3/uL (0-0.2); Basophils % (auto) 2.1 % (0.0-2.0); Eosinophils # (auto) 0.1 10 ^3/uL (0-0.8); Eosinophils % (auto) 2.6 % (0.0-7.0); Hematocrit 24.5 % (41.0-53.0); Hemoglobin 8.2 g/dL (13.5-17.5); Lymphocytes # (auto) 1.3 10 ^3/uL (0.4-5.4); Mean Corpuscular Hemoglobin 34.7 pg (28.0-32.0); Mean Corpuscular Hgb Conc. 33.5 g/dL (32.0-36.0); Mean Corpuscular Volume 103.7 fL (80.0-100.0); Monocytes # (auto) 0.6 10 ^3/uL (0-1.3); Monocytes % (auto) 11.7 % (0.0-12.0); Neutrophils # (auto) 3.2 10 ^3/uL (1.6-8.6); Neutrophils % (auto) 59.6 % (37.0-80.0); Nucleated Red Blood Cells % 0.2 %; Red Blood Cells 2.37 10^6/uL (4.5-5.90); Red Cell Distribution Width 15.9 % (11.8-14.3); White Blood Cell 5.4 10^3/uL (4.4-10.8)
[2023-07-21 04:17] LABS: Alanine Aminotransferase 22 U/L (7-40); Albumin 2.8 g/dL (3.2-4.8); Alkaline Phosphatase 93 U/L (46-116); Anion Gap 5 (5-15); Aspartate Aminotransferase 18 U/L (13-40); BUN/Creatinine Ratio 9.1 (10.0-20.0); Bilirubin, Total 0.3 mg/dL (0.2-1.0); Blood Urea Nitrogen 8 mg/dL (9-23); Calcium 8.3 mg/dL (8.7-10.4); Carbon Dioxide 27 mmol/L (20-30); Chloride 106 mmol/L (98-107); Glucose 162 mg/dL (74-106); Potassium 4.4 mmol/L (3.5-5.1); Sodium 138 mmol/L (136-145); Total Protein 5.1 g/dL (5.7-8.2)
[2023-07-21] MEDS ORDERED: LORA-655 PO (11:31)
[2023-07-21] MEDS ORDERED: HYDR-4902 PO ×3 (11:31→16:01)
[2023-07-21] MEDS ORDERED: CLIN300C70 PO ×2 (11:34→16:01)
[2023-07-21] MEDS ORDERED: ATOR20TA50 PO (13:27)
[2023-07-21] MEDS ORDERED: ASPI1TAB20 PO ×2 (13:27→16:01)
[2023-07-21] MEDS ORDERED: LORA-1121 PO ×2 (15:54→16:01)
[2023-07-21] MEDS ORDERED: ATOR10TA PO (16:01)
== END 2023-07-21 22:10 | disposition home or self-care (01) | DRG 720 ==
LOC: EDBD 18:14 → ER 18:14 → TELE 07-14 06:51 → OVERFLOW 07-14 12:12 → EAST 07-14 12:12
PROVIDERS: ADMIT Internal Medicine; ATTEND Internal Medicine
PROC: 05HB33Z Insertion of Infusion Device into Right Basilic Vein, Percutaneous Approach (ICD-10-PCS; principal; 2023-07-17)
PROC: B54MZZA Ultrasonography of Right Upper Extremity Veins, Guidance (ICD-10-PCS; 2023-07-17)
DX: A41.9 Sepsis, unspecified organism (principal); N17.0 Acute kidney failure with tubular necrosis; E44.0 Moderate protein-calorie malnutrition; E83.51 Hypocalcemia; E11.621 Type 2 diabetes mellitus with foot ulcer; D64.9 Anemia, unspecified; L03.115 Cellulitis of right lower limb; Z68.29 Body mass index [BMI] 29.0-29.9, adult; L97.529 Non-pressure chronic ulcer of other part of left foot with unspecified severity; L03.116 Cellulitis of left lower limb; K76.0 Fatty (change of) liver, not elsewhere classified; E11.65 Type 2 diabetes mellitus with hyperglycemia; K20.90 Esophagitis, unspecified without bleeding; Z59.00 Homelessness unspecified
CPT/HCPCS: 36415; 36600; 70450; 71045; 72100; 73620; 73718; 74176; 80048; 80053; 80061; 80202; 81001; 82565; 82805; 82962; 83605; 83880; 84484; 85025; 85379; 86850; 86900; 86901; 87040; 87077; 87081; 87186; 93005; 93925; G0378; J1815; J2543